=== PATIENT | male | born 1985 ===

== ENCOUNTER 2018-10-04 07:48 | Emergency (ER) | payer MEDICAID, OTHER ==
[~2018-10-04] VITALS: Ht 165.1 cm; Wt 116.0 kg
[2018-10-04 08:40] LABS: BASOPHILS # (AUTO) 0.03 x10^3/uL (0-0.1); BASOPHILS % (AUTO) 0 % (0-1); EOSINOPHILS # (AUTO) 0.14 x10^3/uL (0-0.4); EOSINOPHILS % (AUTO) 2 % (1-7); LYMPHOCYTES # (AUTO) 1.36 x10^3/uL (1-3.4); LYMPHOCYTES % (AUTO) 19 % (22-44); MD NO; MEAN CORPUSCULAR HEMOGLOBIN 30.1 pg (27.5-34.5); MEAN CORPUSCULAR HGB CONC 34.3 g/dL (33.2-36.2); MEAN CORPUSCULAR VOLUME 87.6 fL (81-97); MEAN PLATELET VOLUME 7.4 fL (7.4-10.4); MONOCYTES # (AUTO) 0.41 x10^3/uL (0.2-0.8); MONOCYTES % (AUTO) 6 % (2-9); NEUTROPHILS # (AUTO) 5.11 x10^3/uL (1.8-6.8); NEUTROPHILS % (AUTO) 73 % (42-75); PLATELET COUNT 342 x10^3/uL (130-400); RED BLOOD COUNT 5.29 x10^6/uL (4.38-5.82); RED CELL DISTRIBUTION WIDTH 13.4 % (9.4-14.8)
[2018-10-04 08:51] LABS: ALANINE AMINOTRANSFERASE 52 U/L (12-78); ALBUMIN 3.8 g/dL (3.4-5.0); ANION GAP 6 mmol/L (5-15); CALCIUM 8.8 mg/dL (8.5-10.1); CHLORIDE 106 mmol/L (98-107)
[2018-10-04 08:53] LABS: ALKALINE PHOSPHATASE 66 U/L (45-117); BILIRUBIN,TOTAL 0.5 mg/dL (0.2-1.0); TOTAL PROTEIN 7.4 g/dL (6.4-8.2)
[2018-10-04 09:29] LABS: MICROSCOPIC NOT IND
[2018-10-04 09:35] LABS: CULTURE INDICATED? NO
--- NOTE | 2018-10-04 10:13 | NUR ---
PT IN ROOM WITH FAMILY. PT UP TO BATHROOM MULTIPLE TIMES. PT AMBULATES WITH A STEADY GAIT AND NO DIFFICULTY. AWAITING MD RECHECK AT THIS TIME.
[2018-10-04 10:18] VITALS: BP 118/65
== END 2018-10-04 10:36 | disposition home or self-care (01) ==
LOC: ED 10:29
DX: R55 Syncope and collapse (principal); R42 Dizziness and giddiness
CPT/HCPCS: 36415; 70450; 72110; 80053; 81003; 85025; 93005; 99284

== ENCOUNTER 2020-01-07 17:58 | Emergency (ER) | payer OTHER ==
[~2020-01-07] VITALS: Ht 165.1 cm; Wt 118.5 kg
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
[2020-01-07 20:40] VITALS: BP 157/85
== END 2020-01-07 20:42 | disposition home or self-care (01) ==
LOC: ED 20:36
DX: S91.312A Laceration without foreign body, left foot, initial encounter (principal); X50.0XXA Overexertion from strenuous movement or load, initial encounter; Y93.89 Activity, other specified; Y92.410 Unspecified street and highway as the place of occurrence of the external cause; Y99.8 Other external cause status
CPT/HCPCS: 99283